=== PATIENT | female | born 1945 | race Caucasian/White ===

== ENCOUNTER → 2016-08-09 | Outpatient (CLI) | payer MEDICARE ==
[~2016-08-09] MED LIST: ACET500C; COLA100C2; LIDO5DIS; SENN8.6T14; TRAM50TA2; VICO5TAB; XANA0.25
--- NOTE | 2016-08-14 07:13 | SLEEPCENT ---
DATE OF PROCEDURE: 08/09/2016 REFERRING PROVIDER: Dr. Cannon. INTERPRETATION: Nocturnal polysomnography was performed for the evaluation of sleep apnea syndrome symptoms consisting of excessive daytime sleepiness, insomnia, snoring, gasping respirations, morning headaches, and nonrestorative sleep. She also has a comorbidity of hypertension. A total of 8 hours and 17 minutes of data was reviewed with 383 minutes of sleep identified. Sleep latency was 35.5 minutes. Rapid eye movement (REM) latency was 140 minutes. No slow wave sleep was identified. Sleep efficiency was decreased at 79.5%. Electrocardiogram (EKG) showed sinus bradycardia with an average heart rate of 58 beats per minute. Speeding and slowing was noted surrounding some respiratory events. No epileptiform discharge observed. There were 50 respiratory events identified of 10 seconds in duration or longer for an apnea-hypopnea index (AHI) of 7.8. The events were predominantly obstructive apneas/hypopneas. Reviewing the wave form, I felt there were two unscored events in REM sleep making this index slightly higher. RERA index was 2.2 for a total RDI of 10. Mean oxygen saturation was 95% with a minimum recorded value of 87%. Arousal index was 7.0. Periodic limb movement index was 0. IMPRESSION: 1. Obstructive sleep apnea, mild. RECOMMENDATIONS: Recommend the patient return to the sleep disorder center for the determination of pressure therapy. Pending this intervention, alcohol and sedative usage should be avoided and care should be taken when operating a motor vehicle.
== END ==
LOC: M SLEEP 19:23
PROVIDERS: ATTEND Internal Medicine Pulmonary Disease
DX: G47.30 Sleep apnea, unspecified (principal)

== ENCOUNTER → 2016-08-21 | Outpatient (REF) | payer MEDICARE | LOC: M LAB REF 10:04 | PROVIDERS: ATTEND Ophthalmology | DX: H02.403 Unspecified ptosis of bilateral eyelids (principal) ==

== ENCOUNTER → 2016-10-03 | Outpatient (CLI) | payer MEDICARE ==
--- NOTE | 2016-10-12 21:21 | SLEEPCENT ---
DATE OF PROCEDURE: 10/03/2016 INTERPRETATION: Nocturnal polysomnography was performed for the determination of pressure therapy in this patient with mild obstructive sleep apnea with an apnea-hypopnea index (AHI) of 7.8 and an respiratory disturbance index (RDI) of 10, with associated symptoms of excessive daytime sleepiness, insomnia, snoring, gasping respirations, morning headaches and nonrestorative sleep. She also has a comorbidity of hypertension. A total of 7 hours and 11 minutes of data was reviewed with 333 minutes of sleep identified. Sleep latency was 38.5 minutes. Rapid eye movement (REM) latency was 76 minutes. No slow wave sleep was seen. Sleep efficiency was 78.2%. EKG showed sinus bradycardia with an average heart rate of 54 beats per minute. No epileptiform discharge observed. The patient had been fit with a ResMed Mirage FX nasal mask of standard size, 4 cm of water pressure was applied to the circuit and the lights were dimmed. CPAP originally began at 4 cm of water pressure; was taken to a high of 5, which appeared to be optimal. On this pressure, her AHI was 0 as was her respiratory arousal index (JORDAN). Saturations were in the 90th percentile. No significant periodic limb movements. Supine REM sleep was seen on this pressure with a reasonably good waveform. IMPRESSION: Obstructive sleep apnea (G47.33), mild, reasonably ablated on CPAP at 5 cm of water pressure. RECOMMENDATIONS: Recommend continuation with CPAP at the above pressure via a ResMed Mirage FX nasal mask of standard size, or mask of her preference. Clinical correlation will be necessary to ensure eradication of symptoms.
== END ==
LOC: M SLEEP 19:42
PROVIDERS: ATTEND Internal Medicine Pulmonary Disease
DX: G47.33 Obstructive sleep apnea (adult) (pediatric) (principal)

== ENCOUNTER 2016-12-01 16:13 | Emergency (ER) | payer MEDICARE ==
[~2016-12-01] VITALS: Ht 160 cm; Wt 78.0 kg
[2016-12-01] MEDS ORDERED: CITA40TA4 (16:22)
[2016-12-01] MEDS ORDERED: BREO1INH (16:22)
[2016-12-01] MEDS ORDERED: AMLO5TAB2 (16:22)
[2016-12-01] MEDS ORDERED: REST0.05 (16:22)
[2016-12-01] MEDS ORDERED: MONT10TA2 (16:22)
[2016-12-01] MEDS ORDERED: PRAV20TA2 (16:22)
[2016-12-01] MEDS ORDERED: TETANUS/DIPHTHERIA TOX ADSORB ADULT 0.5ML SYR/VIAL (90714) IM ONE (17:30)
[2016-12-01] MEDS ORDERED: BACITRACIN OINT 30GM TOP ONE (17:30)
[2016-12-01] MEDS ORDERED: ACETAMINOPHEN TAB 650MG DOSE (2X325MG) PO ONE (17:30)
[2016-12-01] MEDS ORDERED: NEOSPORIN OINT 0.9 GM PKT (FLOOR STOCK) As Ordered ONE (17:48)
--- NOTE | 2016-12-01 18:29 | REP ---
Maxillofacial CT: Axial images are acquired with helical scanning and are reformatted in sagittal and coronal projections. I suspect a small right frontal scalp contusion. There is no nasal bone fracture. There is no orbit fracture. The ocular lenses and globes are unremarkable. The orbital fat is unremarkable. There is no zygomatic arch fracture. No mandible fracture. There is an air-fluid level in the left maxillary sinus and there is diffuse wall thickening of the left maxillary sinus compatible with chronic sinusitis. Additionally there is circumferential wall thickening of the left frontal sinus suggestive of chronic sinusitis. The remainder of the paranasal sinuses are unremarkable. Mastoid air cells are clear. Impression: There is no facial bone fracture. There is evidence for chronic left frontal sinusitis and chronic left maxillary sinusitis. Signed by Manny Zapata MD 12/01/2016 06:21 P
[2016-12-01 18:52] VITALS: BP 147/71
== END 2016-12-01 18:54 | disposition home or self-care (01) ==
LOC: M ED 18:00
DX: S00.83XA Contusion of other part of head, initial encounter (principal); W18.09XA Striking against other object with subsequent fall, initial encounter; Y92.410 Unspecified street and highway as the place of occurrence of the external cause; Y93.9 Activity, unspecified; Y99.9 Unspecified external cause status; I10 Essential (primary) hypertension; F41.9 Anxiety disorder, unspecified; F32.9 Major depressive disorder, single episode, unspecified; E78.00 Pure hypercholesterolemia, unspecified; G89.29 Other chronic pain; Z87.442 Personal history of urinary calculi; Z87.891 Personal history of nicotine dependence

== ENCOUNTER → 2017-03-21 | Outpatient (CLI) | payer MEDICARE ==
[~2017-03-21] MED LIST changes: +AMLO5TAB2; +BREO1INH; +CITA40TA4; +MONT10TA2; +PRAV20TA2; +REST0.05
[2017-03-21 08:54] LABS: MEAN CORPUSCULAR HEMOGLOBIN 31.9 pg (27.0-33.0); MEAN CORPUSCULAR HGB CONC 33.3 g/dl (32.0-36.5); MEAN CORPUSCULAR VOLUME 95.8 fl (80.0-96.0); RED CELL DISTRIBUTION WIDTH 12.1 % (11.5-14.5); WHITE BLOOD COUNT 4.6 10^3/uL (4.0-10.0)
[2017-03-21 09:21] LABS: ALBUMIN 3.6 GM/DL (3.2-5.2); ALBUMIN/GLOBULIN RATIO 1.24 (1.00-1.93); ALKALINE PHOSPHATASE 52 U/L (45-117); ALT/SGPT 24 U/L (12-78); ANION GAP 6 MEQ/L (8-16); AST/SGOT 22 U/L (15-37); BILIRUBIN,TOTAL 0.5 MG/DL (0.2-1.0); BLOOD UREA NITROGEN 14 MG/DL (7-18); CALCIUM LEVEL 8.9 MG/DL (8.8-10.2); CARBON DIOXIDE LEVEL 27 MEQ/L (21-32); CHLORIDE LEVEL 108 MEQ/L (98-107); CHOLESTEROL LEVEL 175 MG/DL (<200); GLOMERULAR FILTRATION RATE > 60.0 (>39); GLUCOSE, FASTING 97 MG/DL (83-110); POTASSIUM SERUM 4.5 MEQ/L (3.5-5.1); SODIUM LEVEL 141 MEQ/L (136-145); TOTAL PROTEIN 6.5 GM/DL (6.4-8.2); TRIGLYCERIDES LEVEL 116 MG/DL (<150)
== END ==
LOC: M LAB 08:23
PROVIDERS: ATTEND Nurse Practitioner Family
DX: E78.00 Pure hypercholesterolemia, unspecified (principal)

== ENCOUNTER 2017-05-30 07:29 | Day surgery (SDC) | payer MEDICARE ==
[~2017-05-30] VITALS: Ht 160 cm; Wt 91.2 kg
[~2017-05-30 07:29] MED LIST changes: -ACET500C; +ACET500C PO; +ACETAMINOPHEN 325 MG TAB PO PRN; -AMLO5TAB2; +AMLO5TAB2 PO; +BSS with VANC/TOB/EPI for EYE CASES IR ONE; +CHLO25TA PO; +CYCLOPENTOLATE 2% OPHTH SOLN 2ML BTL OS ONE; +LIDOCAINE 3.5 % 1ML OPHTH TOPICAL GEL OU ONE; +OFLOXACIN 0.3 % (OCUFLOX) OPTH SOL 5ML OS ONE; +PHENYLEPHRINE 2.5% OPHTH SOL 2ML OS ONE; -PRAV20TA2; +PRAV20TA2 PO; +PROAAER10 INH; +PROPARACAINE 0.5% OPHTH SOL 15ML OS PRN; -REST0.05; +REST0.05 OU; +TROPICAMIDE 1% OPHTH SOLN 2ML OS ONE
[2017-05-30] MEDS ORDERED: HEALON DUET (HEALON 10MG/ML 0.55ML & HEALON ENDOCOAT 30MG/ML 0.85ML) As Ordered ONE (08:58)
[2017-05-30] MEDS ORDERED: POVIDONE-IODINE 5% OPHTH PREP SOL 30ML As Ordered ONE (08:58)
[2017-05-30] MEDS ORDERED: MOXIFLOXACIN IN BSS 0.25MG/0.25ML INTRACAMERAL INJ (OR EYE ONLY)(J2280) As Ordered ONE (08:58)
[2017-05-30] MEDS ORDERED: LIDOCAINE 1% SDV 5 ML VIAL As Ordered ONE (08:58)
[2017-05-30] MEDS ORDERED: TRIAMCINOLONE PRES FR 40 MG/ML 1ML(TRIESENCE)(OR EYE ONLY)(J3300 PER 1MG) As Ordered ONE (08:58)
[2017-05-30] MEDS ORDERED: fentaNYL 100 MCG/2 ML INJECTION (J3010) As Ordered ONE (09:17)
[2017-05-30] MEDS ORDERED: MIDAZOLAM INJ 2 MG/2 ML VIAL (J2250) As Ordered ONE (09:17)
[2017-05-30] MEDS ORDERED: AcetaZOLAMIDE 500 MG ER CAP PO ONE (10:30)
[2017-05-30] MEDS ORDERED: TRIMETHOBENZAMIDE 300 MG CAP PO PRN (10:30)
[2017-05-30 10:50] VITALS: BP 123/60
== END 2017-05-30 10:48 | disposition home or self-care (01) ==
LOC: M SDC 07:29
PROVIDERS: ATTEND Ophthalmology
DX: H25.9 Unspecified age-related cataract (principal); I10 Essential (primary) hypertension; K21.9 Gastro-esophageal reflux disease without esophagitis; F32.9 Major depressive disorder, single episode, unspecified; J45.909 Unspecified asthma, uncomplicated; Z79.899 Other long term (current) drug therapy; Z88.8 Allergy status to other drugs, medicaments and biological substances
CPT/HCPCS: 66984; J2250; J2280; J3010; J3300; V2632

== ENCOUNTER → 2017-06-28 | Outpatient (CLI) | payer MEDICARE ==
[2017-06-28 10:48] LABS: HEMATOCRIT 44.7 % (36.0-47.0); MEAN CORPUSCULAR HEMOGLOBIN 31.4 pg (27.0-33.0); MEAN CORPUSCULAR HGB CONC 33.6 g/dl (32.0-36.5); MEAN CORPUSCULAR VOLUME 93.7 fl (80.0-96.0); PLATELET COUNT, AUTOMATED 210 10^3/uL (150-450); RED BLOOD COUNT 4.77 10^6/uL (4.00-5.40); RED CELL DISTRIBUTION WIDTH 11.8 % (11.5-14.5); WHITE BLOOD COUNT 5.7 10^3/uL (4.0-10.0)
[2017-06-28 11:13] LABS: ALBUMIN 4.1 GM/DL (3.2-5.2); ALBUMIN/GLOBULIN RATIO 1.46 (1.00-1.93); ALKALINE PHOSPHATASE 60 U/L (45-117); ALT/SGPT 29 U/L (12-78); ANION GAP 6 MEQ/L (8-16); AST/SGOT 21 U/L (7-37); BILIRUBIN,TOTAL 0.4 MG/DL (0.2-1.0); BLOOD UREA NITROGEN 20 MG/DL (7-18); CALCIUM LEVEL 9.4 MG/DL (8.8-10.2); CARBON DIOXIDE LEVEL 27 MEQ/L (21-32); CHLORIDE LEVEL 108 MEQ/L (98-107); CHOLESTEROL LEVEL 200 MG/DL (<200); CHOLESTEROL RISK RATIO 2.173 (<5); CPK CREATINE PHOSPHOKINASE 65 U/L (26-192); CREATININE FOR GFR 0.67 MG/DL (0.55-1.02); FREE T4 1.13 NG/DL (0.76-1.46); GLOMERULAR FILTRATION RATE > 60.0 (>39); GLUCOSE, FASTING 89 MG/DL (83-110); HDL CHOLESTEROL 92 MG/DL (>40); LDL CHOLESTEROL 87.8 MG/DL (<100); NON-HDL-C 108 MG/DL; POTASSIUM SERUM 4.5 MEQ/L (3.5-5.1); SODIUM LEVEL 141 MEQ/L (136-145); TOTAL PROTEIN 6.9 GM/DL (6.4-8.2); TRIGLYCERIDES LEVEL 101 MG/DL (<150)
== END ==
LOC: M LAB 10:18
DX: E78.00 Pure hypercholesterolemia, unspecified (principal); I10 Essential (primary) hypertension
CPT/HCPCS: 82550

== ENCOUNTER → 2017-11-13 | Outpatient (REF) | payer MEDICARE | LOC: M SFHCWAGY 17:00 | DX: N39.41 Urge incontinence (principal); N89.8 Other specified noninflammatory disorders of vagina ==

== ENCOUNTER → 2017-11-13 | Outpatient (REF) | payer MEDICARE ==
[2017-11-17 14:10] LABS: HPV HYBRID CAPTURE II Negative (Negative)
== END ==
LOC: M SFHCWAGY 15:21
DX: Z12.4 Encounter for screening for malignant neoplasm of cervix (principal); R87.610 Atypical squamous cells of undetermined significance on cytologic smear of cervix (ASC-US); N39.41 Urge incontinence; N89.8 Other specified noninflammatory disorders of vagina
CPT/HCPCS: 87086

== ENCOUNTER → 2018-01-19 | Outpatient (CLI) | payer MEDICARE | LOC: M WUC 16:26 | DX: M19.011 Primary osteoarthritis, right shoulder (principal); M25.511 Pain in right shoulder | CPT/HCPCS: 73030 ==

== ENCOUNTER → 2018-06-07 | Outpatient (REF) | payer MEDICARE ==
[~2018-06-07] MED LIST changes: -ACETAMINOPHEN 325 MG TAB PO PRN; -AMLO5TAB2 PO; +AMLO5TAB6 PO; -BSS with VANC/TOB/EPI for EYE CASES IR ONE; -CYCLOPENTOLATE 2% OPHTH SOLN 2ML BTL OS ONE; -LIDOCAINE 3.5 % 1ML OPHTH TOPICAL GEL OU ONE; -OFLOXACIN 0.3 % (OCUFLOX) OPTH SOL 5ML OS ONE; -PHENYLEPHRINE 2.5% OPHTH SOL 2ML OS ONE; -PROPARACAINE 0.5% OPHTH SOL 15ML OS PRN; -TROPICAMIDE 1% OPHTH SOLN 2ML OS ONE
== END ==
LOC: M SFHCWAGY 15:55
PROVIDERS: ATTEND Nurse Practitioner Family
DX: Z12.4 Encounter for screening for malignant neoplasm of cervix (principal); R87.622 Low grade squamous intraepithelial lesion on cytologic smear of vagina (LGSIL)
CPT/HCPCS: G0123; G0463

== ENCOUNTER → 2021-03-23 | Outpatient (CLI) | payer MEDICARE ==
[~2021-03-23] MED LIST changes: +AMLO1TAB24 PO; -AMLO5TAB6 PO; +MONT10TA10; -MONT10TA2
[2021-03-23 10:25] LABS: BASO % 0.6 % (0.0-1.0); EOS # 0.1 10^3/uL (0.0-0.5); EOS % 1.3 % (0.0-3.0); HEMATOCRIT 42.9 % (36.0-47.0); HEMOGLOBIN 14.6 g/dl (12.0-15.5); LYMPH # 1.4 10^3/uL (1.5-5.0); LYMPH % 27.5 % (24.0-44.0); MEAN CORPUSCULAR HEMOGLOBIN 32.2 pg (27.0-33.0); MEAN CORPUSCULAR VOLUME 94.5 fl (80.0-96.0); MONO # 0.5 10^3/uL (0.0-0.8); MONO % 8.6 % (2.0-8.0); NEUTROPHILS # 3.2 10^3/uL (1.5-8.5); NEUTROPHILS % 61.8 % (36.0-66.0); PLATELET COUNT, AUTOMATED 189 10^3/uL (150-450); RED BLOOD COUNT 4.54 10^6/uL (4.00-5.40); WHITE BLOOD COUNT 5.2 10^3/uL (4.0-10.0)
[2021-03-23 10:50] LABS: ALBUMIN 3.6 GM/DL (3.2-5.2); ALT/SGPT 34 U/L (12-78); BILIRUBIN,TOTAL 0.4 MG/DL (0.2-1.0); BLOOD UREA NITROGEN 14 MG/DL (7-18); CALCIUM LEVEL 9.8 MG/DL (8.8-10.2); CARBON DIOXIDE LEVEL 28 MEQ/L (21-32); CHLORIDE LEVEL 105 MEQ/L (98-107); CREATININE FOR GFR 0.67 MG/DL (0.55-1.30); GLOMERULAR FILTRATION RATE > 60.0 (>39); GLUCOSE, FASTING 86 MG/DL (70-100); SODIUM LEVEL 141 MEQ/L (136-145); TOTAL PROTEIN 6.8 GM/DL (6.4-8.2)
== END ==
LOC: M LAB 09:42
PROVIDERS: ATTEND Internal Medicine Gastroenterology
DX: R19.5 Other fecal abnormalities (principal); R19.7 Diarrhea, unspecified

== ENCOUNTER → 2021-03-30 | Outpatient (CLI) | payer MEDICARE ==
[~2021-03-30] MED LIST changes: +GLUCAGON INJ 1MG VIAL As Ordered ONE; +ISOVUE-370 76% 100ML VIAL As Ordered ONE; +NEULUMEX 0.1% SUSPENSION 450ML BOTTLE (FORMERLY VOLUMEN) As Ordered ONE
--- NOTE | 2021-03-30 12:43 | REP ---
INDICATION: MELENA, DIARRHEA COMPARISON: CT of the abdomen dated 03/05/2009 TECHNIQUE: Axial contrast-enhanced images from the lung bases to the pubic symphysis with images obtained in arterial and portal venous phases of enhancement. Low-dose oral contrast material was administered prior to imaging. Coronal and sagittal reformations were obtained. This CT examination was performed using the following dose reduction techniques: Automated exposure control, adjustment of mA and/or kv according to the patient's size, and use of iterative reconstruction technique. FINDINGS: Moderate fluid-filled distention to the stomach and fluid within loops of small and large bowel likely related to recent oral contrast ingestion. There is no evidence for bowel obstruction or obvious infectious/inflammatory process. The small and large bowel wall is without abnormal thickening and there is no evidence for surrounding inflammatory changes. No evidence for bowel obstruction or stricture. No obvious fistula. No ascites or abnormal fluid collection. No free air. No mesenteric adenopathy. Normal terminal ileum and cecum identified in the right lower quadrant. Very few sigmoid diverticula noted. Liver, spleen, pancreas, and right adrenal gland are normal. Cholelithiasis noted. Stable 1.8 cm left adrenal lesion consistent with atypical adenoma. Kidneys demonstrate bilateral cortical and peripelvic cysts. Pelvis demonstrates normal bladder and evidence for prior hysterectomy. No ascites. No adenopathy. No free air. Atherosclerotic changes to the aorta and vasculature noted without aneurysm or dissection. Musculoskeletal structures demonstrate age-related changes without acute osseous abnormality. Lung bases are clear. IMPRESSION: 1. No obvious acute/chronic enteric process appreciated. 2. Stable benign left adrenal adenoma. 3. Bilateral simple benign renal cysts. <Electronically signed by Michael Villarreal > 03/30/21 [id number]
== END ==
LOC: M RAD 09:54
PROVIDERS: ATTEND Internal Medicine Gastroenterology
DX: K92.1 Melena (principal); R19.7 Diarrhea, unspecified
CPT/HCPCS: 74177; J1610; Q9967

== ENCOUNTER → 2021-06-06 | Outpatient (CLI) | payer MEDICARE ==
[~2021-06-06] MED LIST changes: -GLUCAGON INJ 1MG VIAL As Ordered ONE; +HYDR-3490 PO; -ISOVUE-370 76% 100ML VIAL As Ordered ONE; -NEULUMEX 0.1% SUSPENSION 450ML BOTTLE (FORMERLY VOLUMEN) As Ordered ONE; +TRAZ-257 PO
== END ==
LOC: M LABSMTC 10:21
PROVIDERS: ATTEND Anesthesiology
DX: Z01.818 Encounter for other preprocedural examination (principal); Z11.52 Encounter for screening for COVID-19

== ENCOUNTER 2021-06-10 08:19 | Day surgery (SDC) | payer MEDICARE ==
[~2021-06-10] VITALS: Ht 160 cm; Wt 84.7 kg
[~2021-06-10 08:19] MED LIST changes: -CITA40TA4; +CITA40TA7; -MONT10TA10; +MONT10TA97; +NS 1,000 ML IV ONE
[2021-06-10] MEDS ORDERED: propofoL 200 MG/20 ML VIAL As Ordered ONE (10:10)
[2021-06-10] MEDS ORDERED: LIDOCAINE 2% 100MG/5ML SDV (FOR ANES.) As Ordered ONE (10:10)
[2021-06-10 10:48] VITALS: BP 151/87
== END 2021-06-10 11:00 | disposition home or self-care (01) ==
LOC: M OPP 08:19
PROVIDERS: ATTEND Internal Medicine Gastroenterology
DX: K62.1 Rectal polyp (principal); K63.89 Other specified diseases of intestine; R19.7 Diarrhea, unspecified; R10.13 Epigastric pain; R10.11 Right upper quadrant pain; Z80.0 Family history of malignant neoplasm of digestive organs; Z80.1 Family history of malignant neoplasm of trachea, bronchus and lung; Z80.42 Family history of malignant neoplasm of prostate; Z79.899 Other long term (current) drug therapy; Z88.8 Allergy status to other drugs, medicaments and biological substances; Z87.891 Personal history of nicotine dependence

== ENCOUNTER 2021-10-04 10:53 | Emergency (ER) | payer MEDICARE ==
[~2021-10-04] VITALS: Ht 160 cm; Wt 87.7 kg
[~2021-10-04 10:53] MED LIST changes: -NS 1,000 ML IV ONE
[2021-10-04 11:40] LABS: BASO % 0.3 % (0.0-1.0); EOS % 0.7 % (0.0-3.0); HEMATOCRIT 44.5 % (36.0-47.0); HEMOGLOBIN 15.3 g/dl (12.0-15.5); LYMPH # 1.4 10^3/uL (1.5-5.0); LYMPH % 23.6 % (24.0-44.0); MEAN CORPUSCULAR HEMOGLOBIN 32.5 pg (27.0-33.0); MEAN CORPUSCULAR HGB CONC 34.4 g/dl (32.0-36.5); MEAN CORPUSCULAR VOLUME 94.5 fl (80.0-96.0); MONO # 0.5 10^3/uL (0.0-0.8); MONO % 8.2 % (2.0-8.0); NEUTROPHILS # 3.9 10^3/uL (1.5-8.5); NEUTROPHILS % 66.9 % (36.0-66.0); PLATELET COUNT, AUTOMATED 202 10^3/uL (150-450); RED BLOOD COUNT 4.71 10^6/uL (4.00-5.40); WHITE BLOOD COUNT 5.8 10^3/uL (4.0-10.0)
[2021-10-04 12:15] LABS: CK-MB VALUE MASS < 1.0 NG/ML (<3.6); CPK CREATINE PHOSPHOKINASE 48 U/L (26-192); MB/CK RELATIVE INDEX 2.08 (< OR =4)
[2021-10-04 12:16] LABS: ALBUMIN 4.1 GM/DL (3.2-5.2); ALT/SGPT 46 U/L (12-78); BILIRUBIN,DIRECT 0.1 MG/DL (0.0-0.2); BILIRUBIN,TOTAL 0.5 MG/DL (0.2-1.0); BLOOD UREA NITROGEN 18 MG/DL (7-18); CALCIUM LEVEL 10.1 MG/DL (8.8-10.2); CARBON DIOXIDE LEVEL 28 MEQ/L (21-32); CHLORIDE LEVEL 106 MEQ/L (98-107); CREATININE FOR GFR 0.65 MG/DL (0.55-1.30); GLOMERULAR FILTRATION RATE > 60.0 (>39); GLUCOSE, FASTING 101 MG/DL (70-100); NT-PRO BNP 78 PG/ML (<125); POTASSIUM SERUM 3.8 MEQ/L (3.5-5.1); SODIUM LEVEL 140 MEQ/L (136-145); TOTAL PROTEIN 7.2 GM/DL (6.4-8.2)
[2021-10-04 12:18] VITALS: BP 171/41
[2021-10-04] MEDS ORDERED: NS 1,000 ML IV SCH (12:35)
[2021-10-04] MEDS ORDERED: METOCLOPRAMIDE INJ 10MG/2ML VIAL (J2765 PER 1) IV ONE (12:35)
[2021-10-04] MEDS ORDERED: ISOVUE-370 76% 100ML VIAL As Ordered ONE (12:44)
[2021-10-04 13:18] LABS: CK-MB VALUE MASS < 1.0 NG/ML (<3.6); CPK CREATINE PHOSPHOKINASE 53 U/L (26-192); MB/CK RELATIVE INDEX 1.89 (< OR =4)
[2021-10-04 14:36] VITALS: BP 140/67
== END 2021-10-04 16:05 | disposition home or self-care (01) ==
LOC: M ED 10:53
DX: R91.8 Other nonspecific abnormal finding of lung field (principal); I10 Essential (primary) hypertension; R07.9 Chest pain, unspecified; R51.9 Headache, unspecified; I70.0 Atherosclerosis of aorta; R06.02 Shortness of breath; E78.5 Hyperlipidemia, unspecified; Z87.442 Personal history of urinary calculi; Z82.49 Family history of ischemic heart disease and other diseases of the circulatory system; Z79.899 Other long term (current) drug therapy; Z88.6 Allergy status to analgesic agent
CPT/HCPCS: 36415; 70450; 70496; 70498; 71045; 80048; 80076; 82550; 82553; 83880; 84443; 84484; 85025; 93005; 93041; 94760; 96361; 96374; 99285; J2765; Q9967

== ENCOUNTER → 2021-10-17 | Outpatient (CLI) | payer MEDICARE | LOC: M PLAIMG 08:45 | PROVIDERS: ATTEND Internal Medicine Pulmonary Disease | DX: R91.8 Other nonspecific abnormal finding of lung field (principal); I70.0 Atherosclerosis of aorta; I25.10 Atherosclerotic heart disease of native coronary artery without angina pectoris; D35.00 Benign neoplasm of unspecified adrenal gland ==

== ENCOUNTER → 2022-01-02 | Outpatient (CLI) | payer MEDICARE | LOC: M PLAIMG 13:24 | PROVIDERS: ATTEND Internal Medicine Pulmonary Disease | DX: R91.8 Other nonspecific abnormal finding of lung field (principal) ==

== ENCOUNTER → 2022-01-04 | Outpatient (CLI) | payer MEDICARE ==
[2022-01-04 09:16] LABS: ALBUMIN 3.8 GM/DL (3.2-5.2); BLOOD UREA NITROGEN 15 MG/DL (7-18); CALCIUM LEVEL 9.9 MG/DL (8.8-10.2); CARBON DIOXIDE LEVEL 28 MEQ/L (21-32); CHLORIDE LEVEL 105 MEQ/L (98-107); CREATININE FOR GFR 0.72 MG/DL (0.55-1.30); GLOMERULAR FILTRATION RATE > 60.0 (>39); GLUCOSE, FASTING 98 MG/DL (70-100); NT-PRO BNP 106 PG/ML (<450); PHOSPHORUS LEVEL 2.8 MG/DL (2.5-4.9); SODIUM LEVEL 136 MEQ/L (136-145)
== END ==
LOC: M LAB 08:26
PROVIDERS: ATTEND Internal Medicine Cardiovascular Disease
DX: I10 Essential (primary) hypertension (principal); R60.0 Localized edema; R06.02 Shortness of breath

== ENCOUNTER → 2022-01-10 | Outpatient (CLI) | payer MEDICARE ==
[2022-01-10 09:56] LABS: C REACTIVE PROTEIN QUANTITATIV < 0.30 MG/DL (0.00-0.30); RHEUMATOID FACTOR QUANT < 10.0 IU/ML (<15.0)
[2022-01-11 14:12] LABS: ANTINUCLEAR ANTIBODIES DIRECT Negative (Negative)
== END ==
LOC: M LAB 09:04
PROVIDERS: ATTEND Physician Assistant
DX: M25.461 Effusion, right knee (principal)

== ENCOUNTER → 2022-06-28 | Outpatient (CLI) | payer MEDICARE ==
[2022-06-28 08:56] LABS: ALBUMIN 3.7 G/DL (3.2-5.2); BLOOD UREA NITROGEN 24 MG/DL (9-23); CALCIUM LEVEL 9.4 MG/DL (8.3-10.6); CARBON DIOXIDE LEVEL 25 MMOL/L (20-31); CHLORIDE LEVEL 107 MMOL/L (98-107); CREATININE FOR GFR 0.69 MG/DL (0.55-1.30); GLOMERULAR FILTRATION RATE > 60.0 (>39); GLUCOSE, FASTING 92 MG/DL (74-106); POTASSIUM SERUM 4.1 MMOL/L (3.5-5.1); SODIUM LEVEL 143 MMOL/L (136-145)
== END ==
LOC: M LAB 07:53
PROVIDERS: ATTEND Internal Medicine Cardiovascular Disease
DX: R60.0 Localized edema (principal); I10 Essential (primary) hypertension; R06.02 Shortness of breath

== ENCOUNTER → 2022-06-29 | Outpatient (CLI) | payer MEDICARE | LOC: M PLAIMG 10:49 | PROVIDERS: ATTEND Internal Medicine Pulmonary Disease | DX: R91.8 Other nonspecific abnormal finding of lung field (principal) ==

== ENCOUNTER 2022-07-18 11:28 | Emergency (ER) | payer MEDICARE ==
[~2022-07-18] VITALS: Ht 160 cm; Wt 86.4 kg
[2022-07-18] MEDS ORDERED: CHLO125TA PO (12:02)
[2022-07-18] MEDS ORDERED: LOSA50TA28 PO (12:02)
[2022-07-18] MEDS ORDERED: SPIR-10 PO (12:02)
[2022-07-18] MEDS ORDERED: BUTACAP78 PO (12:02)
[2022-07-18 12:38] LABS: BASO % 0.3 % (0.0-1.0); EOS % 0.2 % (0.0-3.0); HEMATOCRIT 43.4 % (36.0-47.0); HEMOGLOBIN 14.8 g/dl (12.0-15.5); LYMPH # 1.1 10^3/uL (1.5-5.0); LYMPH % 18.4 % (24.0-44.0); MEAN CORPUSCULAR HEMOGLOBIN 32.2 pg (27.0-33.0); MEAN CORPUSCULAR HGB CONC 34.1 g/dl (32.0-36.5); MEAN CORPUSCULAR VOLUME 94.3 fl (80.0-96.0); MONO # 0.5 10^3/uL (0.0-0.8); MONO % 7.9 % (2.0-8.0); NEUTROPHILS # 4.2 10^3/uL (1.5-8.5); NEUTROPHILS % 72.9 % (36.0-66.0); PLATELET COUNT, AUTOMATED 193 10^3/uL (150-450); WHITE BLOOD COUNT 5.7 10^3/uL (4.0-10.0)
[2022-07-18 13:01] VITALS: BP 155/68
[2022-07-18 13:04] LABS: CK-MB VALUE MASS < 1.0 NG/ML (<3.6)
[2022-07-18 13:05] LABS: CPK CREATINE PHOSPHOKINASE 84 U/L (34-145); MB/CK RELATIVE INDEX 1.19 (< OR =4)
[2022-07-18 13:06] LABS: BLOOD UREA NITROGEN 14 MG/DL (9-23); CALCIUM LEVEL 9.8 MG/DL (8.3-10.6); CARBON DIOXIDE LEVEL 26 MMOL/L (20-31); CHLORIDE LEVEL 100 MMOL/L (98-107); CREATININE FOR GFR 0.62 MG/DL (0.55-1.30); GLOMERULAR FILTRATION RATE > 60.0 (>39); GLUCOSE, FASTING 104 MG/DL (74-106); POTASSIUM SERUM 3.4 MMOL/L (3.5-5.1); SODIUM LEVEL 137 MMOL/L (136-145)
== END 2022-07-18 14:25 | disposition home or self-care (01) ==
LOC: M ED 11:28
DX: R07.9 Chest pain, unspecified (principal); F41.0 Panic disorder [episodic paroxysmal anxiety]; I45.10 Unspecified right bundle-branch block; I49.8 Other specified cardiac arrhythmias; I10 Essential (primary) hypertension; E78.5 Hyperlipidemia, unspecified; J44.9 Chronic obstructive pulmonary disease, unspecified; G47.33 Obstructive sleep apnea (adult) (pediatric); Z88.6 Allergy status to analgesic agent; Z79.52 Long term (current) use of systemic steroids; Z79.811 Long term (current) use of aromatase inhibitors; Z79.899 Other long term (current) drug therapy

== ENCOUNTER → 2023-03-13 | Outpatient (REF) | payer MEDICARE ==
[~2023-03-13] MED LIST changes: +BUTACAP78 PO; +CHLO125TA PO; +LOSA50TA28 PO; +SPIR-10 PO
[2023-03-13 18:06] LABS: APPEARANCE, URINE CLEAR (CLEAR); BACTERIA, URINE AUTO NEGATIVE (NEGATIVE); BILIRUBIN, URINE AUTO NEGATIVE (NEGATIVE); BLOOD, URINE BLOOD NEGATIVE (NEGATIVE); COLOR, URINE YELLOW (YELLOW); GLUCOSE, URINE (UA) AUTO NEGATIVE (NEGATIVE); KETONE, URINE AUTO NEGATIVE (NEGATIVE); LEUKOCYTE ESTERASE, URINE AUTO TRACE (NEGATIVE); MUCUS, URINE SMALL (NEGATIVE); NITRITE, URINE AUTO NEGATIVE (NEGATIVE); PROTEIN, URINE AUTO NEGATIVE (NEGATIVE); RBC, URINE AUTO 1 /HPF (0-3); SPECIFIC GRAVITY URINE AUTO 1.021 (1.002-1.035); SQUAMOUS EPITHELIAL CELL UR AU 1 /HPF (0-6); UROBILINOGEN, URINE AUTO 0.2 mg/dL (0.0-2.0); WBC, URINE AUTO 1 /HPF (0-3)
== END ==
LOC: M SMT 17:34
PROVIDERS: ATTEND Specialist
DX: N30.90 Cystitis, unspecified without hematuria (principal)

== ENCOUNTER → 2023-07-18 | Outpatient (REF) | payer MEDICARE ==
[2023-07-18 14:08] LABS: APPEARANCE, URINE HAZY (CLEAR); BACTERIA, URINE AUTO NEGATIVE (NEGATIVE); BILIRUBIN, URINE AUTO NEGATIVE (NEGATIVE); BLOOD, URINE BLOOD NEGATIVE (NEGATIVE); COLOR, URINE YELLOW (YELLOW); GLUCOSE, URINE (UA) AUTO NEGATIVE (NEGATIVE); KETONE, URINE AUTO TRACE mg/dL (NEGATIVE); LEUKOCYTE ESTERASE, URINE AUTO 1+ (NEGATIVE); MUCUS, URINE SMALL (NEGATIVE); NITRITE, URINE AUTO NEGATIVE (NEGATIVE); PROTEIN, URINE AUTO NEGATIVE (NEGATIVE); RBC, URINE AUTO 1 /HPF (0-3); SPECIFIC GRAVITY URINE AUTO 1.025 (1.002-1.035); SQUAMOUS EPITHELIAL CELL UR AU 7 /HPF (0-6); UROBILINOGEN, URINE AUTO 0.2 mg/dL (0.0-2.0); WBC, URINE AUTO 10 /HPF (0-3)
== END ==
LOC: M SMT 13:02
PROVIDERS: ATTEND Specialist
DX: R10.2 Pelvic and perineal pain (principal)

== ENCOUNTER → 2023-07-19 | Outpatient (REF) | payer MEDICARE ==
[2023-07-19 16:08] LABS: APPEARANCE, URINE CLEAR (CLEAR); BACTERIA, URINE AUTO NEGATIVE (NEGATIVE); BILIRUBIN, URINE AUTO NEGATIVE (NEGATIVE); BLOOD, URINE BLOOD NEGATIVE (NEGATIVE); COLOR, URINE STRAW (YELLOW); GLUCOSE, URINE (UA) AUTO NEGATIVE (NEGATIVE); KETONE, URINE AUTO NEGATIVE (NEGATIVE); LEUKOCYTE ESTERASE, URINE AUTO NEGATIVE (NEGATIVE); MUCUS, URINE SMALL (NEGATIVE); NITRITE, URINE AUTO NEGATIVE (NEGATIVE); PROTEIN, URINE AUTO NEGATIVE (NEGATIVE); RBC, URINE AUTO 1 /HPF (0-3); SPECIFIC GRAVITY URINE AUTO 1.009 (1.002-1.035); SQUAMOUS EPITHELIAL CELL UR AU 0 /HPF (0-6); UROBILINOGEN, URINE AUTO 0.2 mg/dL (0.0-2.0); WBC, URINE AUTO 0 /HPF (0-3)
== END ==
LOC: M SMT 15:16
PROVIDERS: ATTEND Specialist
DX: N30.90 Cystitis, unspecified without hematuria (principal)

== ENCOUNTER → 2023-07-27 | Outpatient (CLI) | payer MEDICARE | LOC: M RAD 10:32 | PROVIDERS: ATTEND Specialist | DX: N20.0 Calculus of kidney (principal) ==

== ENCOUNTER → 2023-08-09 | Outpatient (CLI) | payer MEDICARE | LOC: M PLAIMG 12:24 | PROVIDERS: ATTEND Specialist | DX: D35.02 Benign neoplasm of left adrenal gland (principal); E27.8 Other specified disorders of adrenal gland ==

== ENCOUNTER → 2023-09-13 | Outpatient (CLI) | payer MEDICARE | LOC: M SOG 12:54 | PROVIDERS: ATTEND Orthopaedic Surgery | DX: M54.50 Low back pain, unspecified (principal) ==

== ENCOUNTER → 2023-10-03 | Outpatient (CLI) | payer MEDICARE | LOC: M PLAIMG 13:24 | PROVIDERS: ATTEND Orthopaedic Surgery | DX: M48.061 Spinal stenosis, lumbar region without neurogenic claudication (principal); M54.16 Radiculopathy, lumbar region ==

== ENCOUNTER → 2024-08-13 | Outpatient (CLI) | payer MEDICARE | LOC: M RAD 11:04 | PROVIDERS: ATTEND Physician Assistant | DX: N30.90 Cystitis, unspecified without hematuria (principal); Z87.442 Personal history of urinary calculi; N28.1 Cyst of kidney, acquired ==

== ENCOUNTER → 2024-09-02 | Outpatient (REF) | payer MEDICARE ==
[2024-09-02 17:59] LABS: APPEARANCE, URINE CLEAR (CLEAR); BACTERIA, URINE AUTO NEGATIVE (NEGATIVE); BILIRUBIN, URINE AUTO NEGATIVE (NEGATIVE); BLOOD, URINE BLOOD NEGATIVE (NEGATIVE); COLOR, URINE YELLOW (YELLOW); GLUCOSE, URINE (UA) AUTO NEGATIVE (NEGATIVE); KETONE, URINE AUTO NEGATIVE (NEGATIVE); LEUKOCYTE ESTERASE, URINE AUTO NEGATIVE (NEGATIVE); MUCUS, URINE SMALL (NEGATIVE); NITRITE, URINE AUTO NEGATIVE (NEGATIVE); PROTEIN, URINE AUTO NEGATIVE (NEGATIVE); RBC, URINE AUTO 0 /HPF (0-3); SPECIFIC GRAVITY URINE AUTO 1.017 (1.002-1.035); SQUAMOUS EPITHELIAL CELL UR AU 3 /HPF (0-6); UROBILINOGEN, URINE AUTO 0.2 mg/dL (0.0-2.0); WBC, URINE AUTO 0 /HPF (0-3)
== END ==
LOC: M SMT 17:13
PROVIDERS: ATTEND Physician Assistant
DX: N30.90 Cystitis, unspecified without hematuria (principal)